=== PATIENT | female | born 1945 | race Caucasian/White ===

== ENCOUNTER 2021-09-15 14:29 | Emergency (ER) | payer OTHER ==
[~2021-09-15] VITALS: Ht 162.6 cm; Wt 67.6 kg
[2021-09-15] MEDS ORDERED: TETANUS/DIPHTHERIA TOX ADULT 0.5 ML SYR IM ONE (14:45)
[2021-09-15] MEDS ORDERED: LIDOCAINE HCL 1% LOCAL INJ 20 ML VIAL INJ ONE (15:00)
[2021-09-15] MEDS ORDERED: AMOX TR-K CLV1 EAC2 PO (15:25)
== END 2021-09-15 15:49 | disposition home or self-care (01) ==
LOC: ER 14:33
DX: S51.852A Open bite of left forearm, initial encounter (principal); W54.0XXA Bitten by dog, initial encounter; Y92.89 Other specified places as the place of occurrence of the external cause; E11.9 Type 2 diabetes mellitus without complications
CPT/HCPCS: 90714; 99284

== ENCOUNTER 2021-09-25 08:58 | Emergency (ER) | payer MEDICARE, OTHER ==
[~2021-09-25] VITALS: Ht 162.6 cm; Wt 67.6 kg
[~2021-09-25 08:58] MED LIST: AMOX TR-K CLV1 EAC2 PO
== END 2021-09-25 09:29 | disposition home or self-care (01) ==
LOC: ER 09:27
DX: Z48.02 Encounter for removal of sutures (principal)
CPT/HCPCS: 99282